=== PATIENT | male | born 1940 | race Caucasian/White ===

== ENCOUNTER 2018-07-09 11:21 | Emergency (ER) | payer MEDICARE, OTHER, SELFPAY ==
[2018-07-09 11:25] VITALS: BP 138/43; PULSE 56; RESP 14; TEMP 36.3; O2SAT 98; BMI 17.7
[2018-07-09 12:12] LABS: Add Manual Diff / Slide Review NO; Basophils Percent Auto 0.4 % (0-2); Eosinophils Percent Auto 2.8 % (2-4); Hematocrit 28.5 % (41-53); Hemoglobin 9.4 g/dL (13.5-17.5); Mean Corpuscular HGB Conc 32.9 % (30-36); Mean Corpuscular Volume 91.1 fL (80-100); Monocytes Percent Auto 7.3 % (3-14); Neutrophils Absolute Auto 5800 /uL (3000-5900); Neutrophils Percent Auto 78.5 % (50-75); Platelet Count 208 X10^3/uL (150-400); Red Blood Cell Count 3.12 X10^6/uL (4.5-5.9); Red Cell Distribution Width 14.1 % (11.6-14.8); White Blood Cell Count 7.4 X10^3/uL (4.5-11.0)
[2018-07-09 12:19] LABS: INR 1.1 (0.9-1.3); Prothrombin Time 11.9 SECONDS (10.1-12.7)
[2018-07-09 12:22] LABS: PTT Partial Thromboplastin Tim 34 SECONDS (26.4-36.2)
[2018-07-09 12:24] LABS: Alanine Aminotransferase 25 IU/L (21-72); Albumin 3.3 g/dL (3.5-5.0); Albumin Globulin Ratio 1.1 (1.0-2.8); Alkaline Phosphatase 67 U/L (38-126); Aspartate Aminotransferase 20 IU/L (17-59); BUN Creatinine Ratio 17.6 (6-22); Bilirubin Total 0.6 mg/dL (0.2-1.3); Blood Urea Nitrogen 37 mg/dL (9-20); Calcium 8.6 mg/dL (8.4-10.2); Carbon Dioxide 28 mmol/L (22-32); Chloride 105 mmol/L (98-107); Estimated Glomerular Filt Rate 30.5 mL/min (>60); Globulin 2.9 g/dL (1.7-4.1); Glucose 100 mg/dL (80-110); HEMOLYSIS < 15 (0-50); Lipase 22 U/L (23-300); Potassium 3.9 mmol/L (3.4-5.1); Sodium 148 mmol/L (137-145); Total Protein 6.2 g/dL (6.3-8.2)
[2018-07-09 12:30] VITALS: BP 129/54; PULSE 53; RESP 16
[2018-07-09 13:30] VITALS: BP 137/56; PULSE 55; RESP 12; O2SAT 98
[2018-07-09] MEDS: SODIUM CHLORIDE 0.9% 1,000 ML 1000 ML IV (13:40)
--- NOTE | 2018-07-09 13:51 | ED_ITS ---
HPI - Nausea/Vomiting/Diarrhea General Chief complaint: Nausea/Vomiting/Diarrhea Stated complaint: CONSTANT DIARRHEA AND GOUT Time Seen by Provider: 07/09/18 13:10 Source: patient Mode of arrival: ambulatory Limitations: no limitations History of Present Illness HPI Narrative: Patient states he has had chronic diarrhea for the last 2 years since having a complicated appendectomy and colectomy. He states that he is here today because his told him he needs to come in. Patient states his diarrhea is not really any worse than it has been before, but that he has lost 100 lb since his surgery and his doctor has told him there is nothing he can do to fix the problem. Patient states that he is also having a flare-up of his gout, for which he has already seen his doctor and is on medication. Patient denies fevers, new abdominal pain, chest pain, shortness of breath, syncope, cough, or dysuria. MD complaint: diarrhea Onset (ago): year(s) Description of Diarrhea: other (Runny stool) Associated Abdominal Pain: Yes Location of pain: diffuse Radiation: does not radiate Severity: moderate (Diarrhea; pain is mild) Severity scale (1-10): 2 Quality: cramping Pain Consistency: intermittent Relieving factors: none Exacerbating factors: none Context: other (See above) Associated symptoms: weakness Related Data Home Medications Medication Instructions Recorded Confirmed aspirin 81 mg PO BEDTIME #0 06/28/11 07/09/18 atenolol 25 mg PO BID #0 06/28/11 07/09/18 divalproex [Depakote] 250 mg PO BID #0 06/28/11 07/09/18 levetiracetam [Keppra] 1,000 mg PO QNOON #0 06/28/11 07/09/18 omeprazole 20 mg PO BID #0 06/28/11 07/09/18 cholecalciferol (vitamin D3) 2,000 unit PO QNOON #0 10/12/16 07/09/18 [Vitamin D3] hydrochlorothiazide 25 mg PO QDAY #0 10/12/16 07/09/18 oxybutynin chloride 5 mg PO BID #0 10/12/16 07/09/18 topiramate [Topamax] 100 mg PO HS #0 10/12/16 07/09/18 colchicine 0.6 mg PO DAILY PRN 07/09/18 07/09/18 diphenoxylate-atropine [Lomotil] 2 tab PO PRN PRN 07/09/18 07/09/18 doxazosin 4 mg PO QPM 07/09/18 07/09/18 indomethacin 25 - 50 mg PO BID PRN 07/09/18 07/09/18 levetiracetam [Keppra] 1,500 mg PO BEDTIME 07/09/18 07/09/18 Previous Rx's Medication Instructions Recorded hydrocodone-acetaminophen 1 tab PO Q4-6H PRN #14 tab 07/09/18 Allergies Allergy/AdvReac Type Severity Reaction Status Date / Time carbamazepine Allergy Unknown Verified 07/09/18 11:27 Penicillins Allergy Unknown Verified 07/09/18 11:27 Review of Systems Review of Systems All systems reviewed & are unremarkable except as noted in HPI and below Constitutional Denies chills, Denies fever(s), Denies lethargy and Denies weakness Eyes Denies change in vision, Denies eye discharge, Denies irritation and Denies loss of vision ENT Ears, Nose, Mouth, and Throat: Denies change in voice, Denies neck pain and Denies sore throat Cardiovascular Denies chest pain, Denies irregular heart rhythm, Denies lightheadedness, Denies palpitations, Denies dyspnea, Denies dyspnea on exertion and Denies orthopnea Respiratory Denies cough, Denies dyspnea, Denies dyspnea on exertion and Denies wheezing Gastrointestinal Gastrointestinal: Reports abdominal pain, Denies change in bowel habits, Reports diarrhea, Denies nausea and Denies vomiting Genitourinary Denies hematuria, Denies flank pain, Denies urinary incontinence and Denies urinary urgency Musculoskeletal Denies neck pain Integumentary/Breasts Denies pruritus, Denies erythema, Denies rash and Denies wounds Neurologic Denies confusion, Denies loss of vision and Denies weakness Psychiatric Denies anxiety, Denies confusion, Denies depression, Denies homicidal ideation and Denies suicidal ideation Endocrine Denies palpitations Hematologic/Lymphatic Denies easy bruising Allergic/Immunologic Denies wheezing PFSH Medical History Chronic diarrhea (Acute) Surgical History H/O colectomy (Acute) History of appendectomy (Acute) Social History Smoking Status: Former smoker Exam Initial Vital Signs Initial Vital Signs: Vital Signs Temperature 97.3 F L 07/09/18 11:25 Pulse Rate 56 L 07/09/18 11:25 Respiratory Rate 14 07/09/18 11:25 Blood Pressure 138/43 L 07/09/18 11:25 Pulse Oximetry 98 07/09/18 11:25 Const General: cooperative and well developed Nutritional Appearance: well nourished Orientation: alert, awake, oriented x3 and not confused HENLA Head: normocephalic and atraumatic Ears: external ears normal Nose: external nose normal and No nasal discharge Face and sinus: face symmetric and No dry mucous membranes Mouth: oral mucosae normal and moist mucous membranes Eyes General: appearance normal, both eyes and all related structures Eyelids: eyelids normal Conjunctivae: conjunctivae normal Sclera: sclerae normal Pupils: PERRL EOM: EOM intact bilaterally Neck Neck: normal visual inspection, trachea midline, No lymphadenopathy, No midline deformity and No JVD Lymphatic: No lymphedema Chest Chest: normal inspection of the chest Resp Effort & Inspection: normal respiratory effort, able to speak in complete sentences, no respiratory distress and no use of accessory muscles Auscultation: clear to auscultation bilaterally, no rales, no rhonchi and no wheezes Cardio Rate: regular rate Rhythm: regular rhythm Heart Sounds: no click, no gallops, no murmurs and no rubs Pulses: normal peripheral pulses GI Inspection: non-distended Palpation: soft, no hepatosplenomegaly, No guarding, No pulsatile mass and No tender Back/Spine/Pelvis Back: No CVA tenderness Cervical Spine: cervical ROM normal and No pain with cervical ROM Thoracic/Lumbar Spine: thoracic and lumbar spine normal to inspection Skin General: no rashes or lesions noted, No jaundice and No petechiae Neuro General: alert, oriented x3, gait normal and no focal motor deficits Speech: speech normal Extrem General: full ROM, no clubbing, cyanosis or edema, no pedal edema and no calf tenderness Psych Appearance: well kempt Mental Status: mental status grossly normal Attitude: cooperative Thought Content: normal and suicidality Judgment: judgment good Course Course Narrative: I did discuss with the patient that his diarrhea is chronic and that while we can treat him symptomatically and check his labs, we will not be able to cure his diarrhea. I did also discuss with the patient that if he and his at any time feel that patient being at home and receiving care there is not working, they should begin that conversation with the patient's primary care physician early and look at assisted living facility options before this situation becomes dire. Patient states that he does not want to go to assisted living and that he wants to stay home where he can have his dog. Patient does note that they have a residential driver who does assist his with certain tasks. Patient was worked up with labs, which showed a mildly increased creatinine to 2.1, up from previous level. BUN was 37. Patient was given a L 0.9 normal saline. Orders Ordered: Discontinued Medications Sodium Chloride (Normal Saline 0.9%) 1,000 mls @ 1,000 mls/hr IV BOLUS ONE Stop: 07/09/18 14:25 Last Infusion: 07/09/18 15:09 Dose: 0 mls/hr Admin: 07/09/18 13:40 Dose: 1,000 mls/hr Vital Signs - 8 hr 07/09/18 13:30 07/09/18 16:02 Pulse Rate 55 L 89 Respiratory Rate 12 21 Blood Pressure [Left Arm] 137/56 L 129/79 Pulse Oximetry 98 96 MDM - Nausea/Vomiting/Diarrhea Medical Records Attestation: I reviewed the patient's medical records. Lab Data Attestation: I reviewed the patient's lab results. Result diagrams: 07/09/18 12:00 07/09/18 12:00 Lab Results 07/09/18 07/09/18 07/09/18 Range/Units 12:00 12:00 12:00 WBC 7.4 (4.5-11.0) X10^3/uL RBC 3.12 L (4.5-5.9) X10^6/uL Hgb 9.4 L (13.5-17.5) g/dL Hct 28.5 L (41-53) % MCV 91.1 (80-100) fL MCH 30.0 (26-34) PG MCHC 32.9 (30-36) % RDW 14.1 (11.6-14.8) % Plt Count 208 (150-400) X10^3/uL Neut % (Auto) 78.5 H (50-75) % Lymph % (Auto) 11.0 L (25-40) % [place] % (Auto) 7.3 (3-14) % Eos % (Auto) 2.8 (2-4) % Baso % (Auto) 0.4 (0-2) % Neut # (Auto) 5800 (3851-2089) /uL PT 11.9 (10.1-12.7) SECONDS INR 1.1 (0.9-1.3) APTT 34 (26.4-36.2) SECONDS Sodium 148 H (137-145) mmol/L Potassium 3.9 (3.4-5.1) mmol/L Chloride 105 (98-107) mmol/L Carbon Dioxide 28 (22-32) mmol/L BUN 37 H (9-20) mg/dL Creatinine 2.10 H (0.66-1.25) mg/dL Estimated GFR 30.5 L (>60) mL/min BUN/Creatinine Ratio 17.6 (6-22) Glucose 100 (80-110) mg/dL Calcium 8.6 (8.4-10.2) mg/dL Total Bilirubin 0.6 (0.2-1.3) mg/dL AST 20 (17-59) IU/L ALT 25 (21-72) IU/L Alkaline Phosphatase 67 (38-126) U/L Total Protein 6.2 L (6.3-8.2) g/dL Albumin 3.3 L (3.5-5.0) g/dL Globulin 2.9 (1.7-4.1) g/dL Albumin/Globulin Ratio 1.1 (1.0-2.8) Lipase 22 L (23-300) U/L Discharge Plan Departure Patient Disposition: Home Clinical Impression: Diarrhea, Acute dehydration Discharge Date/Time: 07/09/18 16:19 Interventions: ED Discharge Assessment Last Done: 07/09/18 16:19 Instructions: DI for Dehydration -- Adult Activity Restrictions/Additional Instructions: Your labs show mild dehydration. Your chronic diarrhea cannot be fixed in the emergency department, but her symptoms can be helped by getting plenty of fluids to drink. If at any time you feel you need more assistance, please speak with her primary care physician. Prescriptions: New hydrocodone-acetaminophen 5-325 mg tablet 1 tab PO Q4-6H PRN (Reason: pain) Qty: 14 RF: 0 No Action divalproex [Depakote] 250 MG tablet,delayed release (DR/EC) 250 mg PO BID Qty: 0 RF: 0 levetiracetam [Keppra] 500 MG tablet 1,000 mg PO QNOON Qty: 0 RF: 0 atenolol 25 MG tablet 25 mg PO BID Qty: 0 RF: 0 aspirin 81 mg Tablet,Delayed Release (Dr/Ec) 81 mg PO BEDTIME Qty: 0 RF: 0 omeprazole 20 MG capsule,delayed release(DR/EC) 20 mg PO BID Qty: 0 RF: 0 oxybutynin chloride 5 MG tablet 5 mg PO BID Qty: 0 RF: 0 hydrochlorothiazide 25 MG tablet 25 mg PO QDAY Qty: 0 RF: 0 topiramate [Topamax] 100 MG tablet 100 mg PO HS Qty: 0 RF: 0 cholecalciferol (vitamin D3) [Vitamin D3] 2,000 unit Capsule 2,000 unit PO QNOON Qty: 0 RF: 0 levetiracetam [Keppra] 500 mg Tablet 1,500 mg PO BEDTIME RF: 0 diphenoxylate-atropine [Lomotil] 2.5-0.025 mg Tablet 2 tab PO PRN PRN (Reason: Diarrhea) RF: 0 indomethacin 25 mg Capsule 25 - 50 mg PO BID PRN (Reason: gout flair) RF: 0 doxazosin 4 mg Tablet 4 mg PO QPM RF: 0 colchicine 0.6 mg Tablet 0.6 mg PO DAILY PRN (Reason: gout flare) RF: 0
--- NOTE | 2018-07-09 13:59 | PC.NURSE ---
and pt concern r/t continued chronic watery stool and weight loss x2 years following bowel surgery, reports seen by PCP multiple times for same, denies abd pain/tenderness, appears pale, alert/oriented x3 denies fever/chills/nausea/vomiting/trauma or other sx
[2018-07-09 16:02] VITALS: BP 129/79; PULSE 89; RESP 21; O2SAT 96
== END 2018-07-09 16:19 | disposition home or self-care (01) ==
PROVIDERS: Emergency Provider Emergency Medicine; PCP Family Medicine
DX: E86.0 Dehydration (principal); R19.7 Diarrhea, unspecified
CPT/HCPCS: 36591; 80053; 83690; 85025; 85610; 85730; 93005; 93010; 96360; 99283; 99284

== ENCOUNTER → 2019-02-24 13:02 | Outpatient (CLI) | payer MEDICARE, OTHER, SELFPAY ==
--- NOTE | 2019-02-24 | DI.CT.S_ITS ---
PROCEDURE: CT ABDOMEN PELVIS W CON INDICATIONS: Unspecified abdominal pain TECHNIQUE: After the administration of oral and intravenous contrast, 5 mm thick sections acquired from the diaphragms to the symphysis. 5 mm thick coronal and sagittal reformats were performed. For radiation dose reduction, the following was used: automated exposure control, adjustment of mA and/or kV according to patient size. COMPARISON: [facility], CT, ABDOMEN/PELVIS WITH CONTRAST, 09/25/2017, 11:46. FINDINGS: Image quality: Excellent. ABDOMEN: Lung bases: Moderate bibasilar emphysematous changes and scarring. Heart size is normal. Small hiatal hernia. Solid organs: Liver is normal in size and enhancement. A few scattered subcentimeter cystic structures and a punctate coarse calcification are present within the liver. Gallbladder is surgically absent. Biliary system is non-dilated. Pancreas enhances normally. Spleen is normal in size and enhancement. Surgical changes of left adrenalectomy. Right adrenal gland is normal. The right kidney appears normal. Left lower pole demonstrates cortical scarring and volume loss. Peritoneum and bowel: Stomach, small bowel, and colon loops are normal in caliber and wall thickness. There is surgical changes of a bowel anastomosis in the right lower quadrant and central right abdomen. No evidence of bowel obstruction or surrounding inflammatory change. There is increased quantity of stool in the sigmoid and rectum. No free fluid or air. Nodes and vessels: No retroperitoneal or mesenteric adenopathy. Aorta and inferior vena cava are normal in caliber. There has been interval change in morphology of distal abnormal aorta with an irregular contour. It now measures 2.8 cm in greatest transverse diameter (previously 2.3 cm) by 2.3 cm in AP direction. Miscellaneous: No ventral hernias. PELVIS: Genitourinary: Bladder wall thickness is normal. The prostate gland is diffusely enlarged. Miscellaneous: No inguinal hernias or adenopathy. Bones: No suspicious bony lesions. No vertebral body compression fractures. IMPRESSION: 1. Increased solid stool in the distal colon and rectum. 2. No other findings to explain pain. 3. Postsurgical changes of probable left lower pole partial nephrectomy, left adrenalectomy, cholecystectomy, and 2 bowel resections. 4. There is new irregularity and enlargement of distal abdominal aorta which measures 2.8 cm in maximal transverse diameter. Vascular surgery consult is recommended. Dictated by: Keila Carter M.D. on 02/24/2019 at 16:23 Approved by: Keila Carter M.D. on 02/24/2019 at 16:33
[2019-02-24 15:04] LABS: Alanine Aminotransferase 17 IU/L (21-72); Albumin 3.4 g/dL (3.5-5.0); Alkaline Phosphatase 91 U/L (38-126); Aspartate Aminotransferase 18 IU/L (17-59); BUN Creatinine Ratio 40.8 (6-22); Bilirubin Total 0.4 mg/dL (0.2-1.3); Blood Urea Nitrogen 53 mg/dL (9-20); Calcium 9.3 mg/dL (8.4-10.2); Carbon Dioxide 30 mmol/L (22-32); Chloride 100 mmol/L (98-107); Globulin 3.3 g/dL (1.7-4.1); Glucose 92 mg/dL (80-110); HEMOLYSIS < 15 (0-50); Potassium 3.9 mmol/L (3.4-5.1); Sodium 137 mmol/L (137-145); Total Protein 6.7 g/dL (6.3-8.2)
== END ==
PROVIDERS: PCP Family Medicine; Visit Provider Family Medicine
DX: R10.9 Unspecified abdominal pain (principal); R06.00 Dyspnea, unspecified; I77.89 Other specified disorders of arteries and arterioles; N40.0 Benign prostatic hyperplasia without lower urinary tract symptoms; K44.9 Diaphragmatic hernia without obstruction or gangrene; Z90.49 Acquired absence of other specified parts of digestive tract; Z51.5 Encounter for palliative care
CPT/HCPCS: 36415; 74177; 80053; Q9967

== ENCOUNTER → 2019-04-10 15:35 | Outpatient (CLI) | payer MEDICARE, OTHER, SELFPAY ==
--- NOTE | 2019-04-10 | DI.RAD.S_ITS ---
PROCEDURE: XR CHEST 2V INDICATIONS: COUGH TECHNIQUE: 2 views of the chest were acquired. COMPARISON: [facility], , CHEST 1 VIEW, 10/15/2016, 6:52. FINDINGS: Surgical changes and devices: There are multiple surgical clips in the left upper quadrant.. Lungs and pleura: Mild infiltrate in the left lower lung zone. Hyperinflation consistent with COPD. Left basilar opacity may be atelectasis or scars. No pleural effusions or pneumothorax. Mediastinum: Mediastinal contours are normal. Heart size is normal. Bones and chest wall: No suspicious bony abnormalities. Soft tissues appear unremarkable. IMPRESSION: 1. Mild infiltrate in the left lower lung zone suspicious for developing pneumonia.. 2. Left basilar scars or atelectasis. 3. COPD. Dictated by: Sydney Abraham M.D. on 04/10/2019 at 17:00 Approved by: Sydney Abraham M.D. on 04/10/2019 at 17:06
== END ==
PROVIDERS: PCP Student in an Organized Health Care Education/Training Program; Visit Provider Student in an Organized Health Care Education/Training Program
DX: R05 Cough (principal); J44.9 Chronic obstructive pulmonary disease, unspecified
CPT/HCPCS: 71046

== ENCOUNTER → 2021-05-02 12:59 | Outpatient (CLI) | payer OTHER, SELFPAY ==
[2021-05-03 06:10] LABS: PSA Free % 28.8 % (.); PSA, Total 11.4 ng/mL (0.0-4.0)
== END ==
PROVIDERS: PCP Student in an Organized Health Care Education/Training Program; Referring Provider Urology; Visit Provider Urology
DX: R97.20 Elevated prostate specific antigen [PSA] (principal); Z90.79 Acquired absence of other genital organ(s); Z98.890 Other specified postprocedural states
CPT/HCPCS: 36415; 84153; 84154

== ENCOUNTER 2022-05-24 17:08 | Emergency (ER) | payer OTHER, SELFPAY ==
[2022-05-24] VITALS (9 sets, daily range): BP systolic 187–223; BP diastolic 88–168; PULSE 65–86; RESP 17–22; TEMP 36.3; O2SAT 85–98; BMI 18.3
--- NOTE | 2022-05-24 21:28 | ED.SKABFB ---
HPI - Skin/Abscess/Foreign Bdy General Chief complaint: Skin/Abscess/Foreign Body Stated complaint: Thinks veinous statis inf., Poss. clot Time Seen by Provider: 05/24/22 21:15 Source: patient Mode of arrival: Ambulatory Limitations: no limitations History of Present Illness HPI narrative: 82-year-old male former smoker with history of hypertension and BPH presents with a caregiver for evaluation of some redness, pain and swelling of his left lower extremity. He has known chronic venous stasis but developed a change in his presentation over the past day or 2. He is had no weakness or fatigue and denies any fever or chills. He has no chest pain or shortness of breath. He denies any recent trauma or injury nor long distance travel. He is not had any clots previously and denies any history of known cancer. Related Data Home Medications Medication Instructions Recorded Confirmed aspirin 81 mg tablet,delayed 81 mg PO BEDTIME ##0 06/28/11 05/10/21 release omeprazole 20 mg capsule,delayed 20 mg PO BID ##0 06/28/11 05/10/21 release cholecalciferol (vitamin D3) 50 2,000 unit PO QNOON ##0 10/12/16 05/10/21 mcg (2,000 unit) capsule (Vitamin D3) oxybutynin chloride 5 mg tablet 5 mg PO BID ##0 10/12/16 05/10/21 amlodipine 10 mg tablet 10 mg PO DAILY 04/18/21 05/10/21 potassium chloride 20 mEq 20 meq PO DAILY 04/18/21 05/10/21 tablet,extended release Previous Rx's Medication Instructions Recorded finasteride 5 mg tablet 5 mg PO DAILY #30 tabs 05/16/21 amlodipine 10 mg tablet 10 mg PO DAILY #30 tabs 05/24/22 doxycycline hyclate 100 mg tablet 100 mg PO BID #20 tabs 05/24/22 Allergies Allergy/AdvReac Type Severity Reaction Status Date / Time carbamazepine Allergy Unknown Verified 05/24/22 17:21 Penicillins Allergy Unknown Verified 05/24/22 17:21 Review of Systems Review of Systems Narrative: GENERAL: Denies chills, fatigue, malaise, fever, sweats. HEENT: Denies sinus pain, ear pain, sore throat, difficulty swallowing, dizziness. RESPIRATORY: Denies dyspnea, cough, wheezing, hemoptysis, sputum. CARDIOVASCULAR: Denies chest pain, palpitations, orthopnea, edema, GASTROINTESTINAL: Denies nausea, vomiting, abdominal pain, diarrhea, constipation, melena. : Denies dysuria, frequency, incontinence, hematuria, urinary retention. MUSCULOSKELETAL: denies weakness, joint pain, or bony pain SKIN: See HPI NEUROLOGIC: Denies weakness, headache, numbness, change in speech, confusion, seizures, incoordination. PSYCHIATRIC: No concerning psychosocial issues. 12 point review of systems is negative except for those stated above Patient History Medical History (Updated 05/24/22 @ 23:04 by Isidro Lopez DO) Adenomatous colon polyp Anemia Anorexia Arthritis Asthma Cataract (lens) fragments in eye following cataract surgery, bilateral CHF (congestive heart failure) Chronic diarrhea CKD (chronic kidney disease) stage 3, GFR 30-59 ml/min COPD (chronic obstructive pulmonary disease) Depression Dyspnea on exertion Fecal occult blood test positive Frequency-urgency syndrome Gout Gross hematuria History of tobacco use Kidney stones Nocturia Pheochromocytoma PSA elevation Pulmonary HTN 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 Venous stasis ulcer with edema of lower leg Vitamin B12 deficiency Surgical History (Updated 04/18/21 @ 13:56 by Lester Castillo MD) H/O circumcision H/O colectomy H/O hernia repair H/O resection of small bowel H/O transurethral resection of prostate History of appendectomy History of cholecystectomy Family History Mother Cancer Diabetes mellitus Hypertension Father Hypertension Hearing impairment Social History marital status: number of children: 3 occupational status: other Previous occupational history: retired Smoking Status: Former smoker Type(s) of exercise: none Smoking Status: Former smoker alcohol intake frequency: 0-2 drinks per day Substance Use Type: does not use Exam Narrative Exam Narrative: GENERAL: [82] year old patient appears stated age. Well-developed patient, in mild distress. HEAD: Atraumatic. Normocephalic. EYES: Pupils equal round and reactive. Extraocular motions intact. No scleral icterus. No injection or drainage. ENT: Nose without bleeding, purulent drainage. Throat without erythema, tonsillar hypertrophy or exudate. Airway patent. NECK: Trachea midline. Non tender CARDIOVASCULAR: Regular rate and rhythm without murmurs, gallops, or rubs. RESPIRATORY: Clear to auscultation. Breath sounds equal bilaterally. No wheezes, rales, or rhonchi. GASTROINTESTINAL: Abdomen soft, non-tender, nondistended. EXTREMITIES: Bilateral lower extremities with evidence of chronic venous stasis. Left lower extremity with minimal circumferential swelling and increased erythema and warmth of lower 3rd of extremity, no drainage, induration or fluctuance, no associated lymphangitis BACK: Nontender without deformity or crepitance. No flank tenderness. NEURO: AOx3. SKIN: No rash or erythema of visible areas Initial Vital Signs Initial Vital Signs: Vital Signs Temperature 97.4 F L 05/24/22 17:21 Pulse Rate 65 05/24/22 17:21 Respiratory Rate 19 05/24/22 17:21 Blood Pressure 187/88 H 05/24/22 17:21 Pulse Oximetry 96 05/24/22 17:21 Oxygen Delivery Method 05/24/22 17:21 Course Orders Ordered: ED Orders 05/24/22 21:36 US periph venous low extrem lt Stat Discontinued Medications Doxycycline Hyclate (Doxycycline Hyclate 100 Mg Tablet) 100 mg PO NOW ONE Stop: 05/24/22 22:42 Last Admin: 05/24/22 22:57 Dose: 100 mg Documented By: NR Vital Signs Vital signs: Vital Signs - 8 hr 05/24/22 22:00 05/24/22 22:00 05/24/22 22:30 Pulse Rate 65 Respiratory Rate 19 Blood Pressure 204/94 H 203/168 H Pulse Oximetry 97 05/24/22 22:30 05/24/22 22:34 05/24/22 22:34 Pulse Rate 86 66 Respiratory Rate 22 18 Blood Pressure 216/135 H Pulse Oximetry 98 97 05/24/22 23:00 05/24/22 23:00 Pulse Rate 68 Respiratory Rate 17 Blood Pressure 216/98 H Pulse Oximetry 97 MDM - Skin/Abscess/Foreign Bdy Imaging Data US - DVT: Radiologist's Impression: Ravin Collins JR??82??M??1940 ? Allergy/Adv: carbamazepine, Penicillins (More??) Close Vascular Ultrasound (Signed) Joseph De La Torre - 05/24/22 Chest X-Ray (Signed) Sharmila Abraham - 04/10/19 Abdomen/Pelvis CT (Signed) Keila Carter - 02/24/19 Launch?Image [address] [address] Ultrasound Report Signed Patient: Ravin Collins JR MR#: [id number] : 1940 Acct:[id number] Age/Sex: 82 / M Date of Service: 05/24/22 Loc: ED Accession Number: [id number] ?? Procedure: US periph venous low extrem lt Ordering Provider: Isidro Lopez D.O. PROCEDURE:? US PERIPH VENOUS LOW EXTREM LT ? INDICATIONS:? PAIN/REDNESS/SWELLING ? TECHNIQUE:? Real-time imaging, as well as color and pulse Doppler interrogation, were performed of the lower extremity deep veins from the inguinal ligament to the popliteal fossa.? ? COMPARISON:? None. ? FINDINGS:? The common femoral, femoral and popliteal veins are normally compressible, and free of intraluminal thrombus.? Color and pulse Doppler demonstrate normal phasic intraluminal flow.? There is normal augmentation response to distal compression maneuver. ? ? IMPRESSION:? ? 1. No evidence of deep venous thrombosis in the left lower extremity. ? ? Dictated by: Joseph De La Torre M.D. on 05/24/2022 at 23:38 ? ? Approved by: Joseph De La Torre M.D. on 05/24/2022 at 23:42 ? Discharge Plan Departure Patient Disposition: Home Clinical Impression: Cellulitis of left leg, HTN (hypertension) Instructions: DI for Cellulitis -- Adult Activity Restrictions/Additional Instructions: *You have been diagnosed with [cellulitis of left leg. As we discussed your history and physical exam are reassuring and the ultrasound shows no evidence of DVT. ] *What to do: *Please continue to take your regular medications as directed. [ x] New medication prescriptions sent to your pharmacy: [ [facility]] [ ] New medication written as a paper prescription [ ] No new medications given *Please follow up with your primary care provider in 2-3 days, call for an appointment. Let them know you were seen in the Emergency Department and that we ask that you be seen in follow up. We will electronically transmit a record of today's note if your PCP is in our system *If you do not have a primary care provider please contact the [facility] Resource line at [phone]. They will ask some questions about your medical history and help get you set up with a doctor in the community. *Return to Emergency Department if you should have any new, worsening or concerning symptoms, such as [fever greater than 101 F, shaking chills, worsening pain, persistent vomiting or other bothersome symptoms] Prescriptions: New doxycycline hyclate 100 mg tablet 100 mg PO BID Qty: 20 0RF amlodipine 10 mg tablet 10 mg PO DAILY Qty: 30 0RF No Action aspirin 81 mg Tablet,Delayed Release (Dr/Ec) 81 mg PO BEDTIME Qty: 0 omeprazole 20 MG capsule,delayed release(DR/EC) 20 mg PO BID Qty: 0 oxybutynin chloride 5 MG tablet 5 mg PO BID Qty: 0 cholecalciferol (vitamin D3) [Vitamin D3] 2,000 unit Capsule 2,000 unit PO QNOON Qty: 0 finasteride 5 mg tablet 5 mg PO DAILY Qty: 30 12RF amlodipine 10 mg tablet 10 mg PO DAILY potassium chloride 20 mEq tablet extended release 20 meq PO DAILY Referrals: Lashon Geiger MD [Primary Care Provider] - Visit Report Forms: Patient Portal/API
--- NOTE | 2022-05-24 21:36 | DI.US.S_ITS ---
PROCEDURE: US PERIPH VENOUS LOW EXTREM LT INDICATIONS: PAIN/REDNESS/SWELLING TECHNIQUE: Real-time imaging, as well as color and pulse Doppler interrogation, were performed of the lower extremity deep veins from the inguinal ligament to the popliteal fossa. COMPARISON: None. FINDINGS: The common femoral, femoral and popliteal veins are normally compressible, and free of intraluminal thrombus. Color and pulse Doppler demonstrate normal phasic intraluminal flow. There is normal augmentation response to distal compression maneuver. IMPRESSION: 1. No evidence of deep venous thrombosis in the left lower extremity. Dictated by: Joseph De La Torre M.D. on 05/24/2022 at 23:38 Approved by: Joseph De La Torre M.D. on 05/24/2022 at 23:42
[2022-05-24] MEDS: DOXYCYCLINE HYCLATE 100 MG TABLET PO (22:57)
--- NOTE | 2022-05-24 23:09 | PC.NURSE ---
spoke with MD about pt's high BP. Patient used to take amlodipine but stopped taking medications due to confusion. daughter is now taking over control on medications. Pt has follow up exam in the upcoming week to see cardiology and has been educated on importance of taking BP medications and follow up with PCP this week. old Rx may need to be changed. Rx sent to pharmacy to be taken ANA
== END 2022-05-24 23:14 | disposition home or self-care (01) ==
PROVIDERS: Emergency Provider Emergency Medicine; PCP Student in an Organized Health Care Education/Training Program
DX: L03.116 Cellulitis of left lower limb (principal); I10 Essential (primary) hypertension
CPT/HCPCS: 93971; 99283

== ENCOUNTER → 2022-06-04 13:15 | Outpatient (CLI) | payer OTHER, SELFPAY ==
[2022-06-19 08:03] LABS: COVID19 -Nasal RAPID Negative (Negative)
== END ==
PROVIDERS: PCP Family Medicine; Referring Provider Family Medicine; Visit Provider Family Medicine
DX: R06.02 Shortness of breath (principal)

== ENCOUNTER → 2022-06-04 13:16 | Outpatient (CLI) | payer OTHER, SELFPAY ==
--- NOTE | 2022-06-04 | DI.ECHO.S_ITS ---
[facility] +---------+ : : [address] : : : : [place], : : : : [place] [id number] : : : : Phone: [phone] + [id number] Echocardiogram Report + + :Name: ELY GRIDER JR Study Date: 06/04/2022 Height: 69 in : :[facility] ReadingLocation: Weight: 130 lb : : Gender: Male BSA: 1.7 m2 : :: 1940 Age: 82 yrs BP: 143/82 mmHg: :Reason For Study: SOB : :Ordering Physician: MARY GRACE, : :CELSO Vidal Performed By: Nikolas Curtis : :Referring: CELSO BRODY : + + Interpretation Summary Normal left ventricle size with hyperdynamic function and ejection fraction 70-75%. Mild aortic valve sclerosis. Mild to moderate tricuspid regurgitation. The right ventricular systolic pressure is estimated to be at least 46 mmHg based on an estimated right atrial pressure of 3 mm Hg. Moderate pulmonary hypertension. Procedure: A two-dimensional transthoracic echocardiogram with color flow and Doppler was performed. The study quality was technically difficult. There is no prior echocardiogram noted for this patient. Left Ventricle: The left ventricle is normal in size and wall thickness. The left ventricle is hyperdynamic. The ejection fraction is estimated to be 70- 75%. There are no focal wall motion abnormalities. Right Ventricle: The right ventricle is normal in size and function. Atria: The left atrium grossly appears normal in size. The right atrium grossly appears normal in size. The interatrial septum grossly appears intact with no obvious evidence for an atrial septal defect. Mitral Valve: The mitral valve is grossly normal. There is no mitral regurgitation noted. Aortic Valve: There is mild aortic valve sclerosis. No aortic regurgitation is present. Tricuspid Valve: The tricuspid valve is normal in structure and function. There is mild to moderate tricuspid regurgitation. The right ventricular systolic pressure is estimated to be at least 46 mmHg based on an estimated right atrial pressure of 3 mm Hg. There is moderate pulmonary hypertension. Pulmonic Valve: The pulmonic valve is normal in structure and function. There is a trace or physiologic amount of pulmonic regurgitation. Great Vessels: The aortic root is normal size. The ascending aorta could not be visualized. The IVC is of normal diameter and collapses greater than 50% with a sniff. This suggests a low right atrial pressure of 3 mm Hg. Pericardium/ Pleura There is no pericardial effusion. There is no pleural effusion. MMode/2D Measurements & Calculations LVIDd: 3.8 cm LVOT diam: 2.3 cm LVIDs: 2.4 cm Ao root diam: 3.1 cm IVSd: 0.90 cm LVPWd: 0.90 cm LV zuluaga. diameter/BSA (cm/m^2): 2.2 LV sys. diameter/BSA (cm/m^2): 1.4 FS: 36.8 % LA dimension: 2.1 cm Doppler Measurements & Calculations Ao V2 max: 149.0 cm/sec LVOT Max Alhaji: 85.5 cm/sec Ao V2 mean: 101.0 cm/sec LV V1 max P.9 mmHg Ao V2 VTI: 25.1 cm LV V1 VTI: 14.9 cm Ao max P.0 mmHg Ao mean P.0 mmHg JOBY(I,D): 2.5 cm2 MV E max alhaji: 44.6 cm/sec JOBY(V,D): 2.4 cm2 MV A max alhaji: 59.6 cm/sec JOBY indexed to BSA (cm^2/m^2): 1.4 MV E/A: 0.75 sev ratio: 0.59 Med Peak E' Alhaji: 5.6 cm/sec E/E' med: 8.0 Lat Peak E' Alhaji: 6.4 cm/sec E/E' lat: 7.0 E/e' average: 7.5 MV dec time: 0.22 sec TR max alhaji: 326.0 cm/sec TR max P.5 mmHg SV(LVOT): 61.9 ml AV VR_phl: 0.57 JOBY(VTI)/BSA_phl: 1.4 MV P1/2t-pr_phl: 66.0 msec Electronically signed by: Brittani Peralta on Reading Physician:06/04/2022 04:06 PM
[2022-06-04 15:18] LABS: COVID19 -Nasal RAPID Negative (Negative)
--- NOTE | 2022-06-18 18:28 | DI.NM.S_ITS ---
DATE OF SERVICE: 06/04/2022 PROCEDURE PERFORMED: Pharmacological perfusion study INDICATION: Shortness of breath. RADIOPHARMACEUTICAL: 27.5 millicurie technetium-99m Myoview IV was injected at stress and 26.1 millicurie technetium-99m Myoview IV was injected at rest. CARDIAC STRESS: The patient underwent IV Lexiscan perfusion study under the supervision of an attending staff. The patient received IV Lexiscan, as per protocol. The patient remained hemodynamically stable. Baseline blood pressure 152/78. Baseline rhythm sinus with right bundle branch block. During stress, there were no convincing ischemic changes seen. Occasional PVCs. No ventricular tachycardia or AFib. Rare PACs. Had minimal dyspnea. RAW DATA: There is a hot spot near the inferior border of the heart. Increased gut activity. Increased subdiaphragmatic activity. GATED STUDY: Resting LV ejection fraction 86 and stress LV ejection fraction 89 percent without any obvious wall motion abnormalities. Resting end-diastolic volume 79 mL. TID ratio 0.74, which is within normal limits. Lung/heart ratio 0.13, which is within normal limits. MYOCARDIAL PERFUSION SCAN: Please note that the patient does not have any stress prone images. Stress supine and resting supine images were compared to each other. Stress supine and resting supine images revealed small size, mildly decreased perfusion of inferior wall and inferoapex without any reversible ischemia. CONCLUSION: 1. No obvious reversible ischemia. 2. Small size fixed inferior wall and inferoapical defect. However, no obvious wall motion abnormalities in that segment. Preserved and hyperdynamic left ventricular function. There is increased subdiaphragmatic activity and hot spot near the inferior border of the heart. Hence, most likely we are dealing with tissue attenuation artifact. Normal wall motion goes against the diagnosis of previous transmural myocardial infarction. There are no stress prone images. Hence, we cannot clearly distinguish non ST-T [place] and tissue attenuation artifact. However, based on above-mentioned factors, most likely, we are dealing with tissue attenuation artifact. Overall, this is a low-risk myocardial perfusion scan. Correlate clinically. Ravin Collins JR - [place] doc#: [id number]/job#: [id number] dd: 06/18/2022 13:01:00 dt: 06/18/2022 17:45:00 DICTATING MD/COPIES TO: Rhonda Mcpherson MD COPIES MNE: KATINA;
== END ==
PROVIDERS: PCP Family Medicine; Referring Provider Family Medicine; Visit Provider Family Medicine
DX: R06.02 Shortness of breath (principal); Z20.822 Contact with and (suspected) exposure to COVID-19; I35.8 Other nonrheumatic aortic valve disorders; I07.1 Rheumatic tricuspid insufficiency; I27.20 Pulmonary hypertension, unspecified
CPT/HCPCS: 78452; 87635; 93017; 93306; A9502; J2785